=== PATIENT | female | born 1985 ===

== ENCOUNTER 2017-11-22 18:14 | Emergency (ER) | payer BC ==
[2017-11-22] MEDS ORDERED: diPHENhydraMINE PO* 50 MG PO ONE (18:40)
[2017-11-22] MEDS ORDERED: predniSONE TAB* 20 MG PO ONE (18:40)
--- NOTE | 2017-11-22 18:57 | UC ---
Myles Conde Natalie, scribed for Dayo Shaw MD on 11/22/17 at 1846 . Allergic Reaction HPI - HPI Summary HPI Summary: The pt is a 32 y/o F presenting to UC c/o an allergic reaction starting an hour ago. She was driving home from work when her lips, eyelids, and hands started swelling, and her skin became erythematous. She ate almonds before leaving work , but hasnt had allergies to them in the past. She is unsure if she touched anything. Pt additionally c/o scratchy throat, tight voice, body itching, and hives. Pt denies changes to breathing. She is allergic to Amoxicillin. She has PMHx of eczema. - History of Current Complaint Chief Complaint: UCAllergicReaction Stated Complaint: ALLERGIC REACTION Time Seen by Provider: 11/22/17 18:33 Hx Last Menstrual Period: iud Onset/Duration: Sudden Onset, Lasting Minutes - started about an hour ago, Still Present Character: Swelling, Hives Aggravating Factor(s): Nothing Alleviating Factor(s): Nothing Associated Signs And Symptoms: Positive: Other: - scratchy throat, tight voice, body itches. 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 - Family History Known Family History: Negative: Cardiac Disease, Hypertension - Social History Alcohol Use: Occasionally Substance Use Type: Marijuana Smoking Status (MU): Never Smoked Tobacco Review of Systems Skin: Other - hives, erythema, itching ENT: Other - scratchy throat, tight voice Respiratory: Other - NEGATIVE: changes to breathing All Other Systems Reviewed And Are Negative: Yes Physical Exam Triage Information Reviewed: Yes Appearance: Well-Appearing Vital Signs: Initial Vital Signs Temp 98.6 F 11/22/17 18:22 Pulse 105 11/22/17 18:22 Resp 21 11/22/17 18:22 BP 162/99 11/22/17 18:22 Pulse Ox 100 11/22/17 18:22 Eyes: Positive: Other: - eyelids with edema ENT: Positive: Other - lips upper and lower mild edema, face flushed. Voice is clear without stridor. Negative: Trismus, Muffled voice, Hoarse voice Neck: Positive: Supple Respiratory: Positive: Lungs clear, Normal breath sounds, No respiratory distress, No accessory muscle use Cardiovascular: Positive: RRR, No Murmur Abdomen Description: Positive: Nontender Musculoskeletal: Positive: Strength Intact, ROM Intact Neurological: Positive: Muscle Tone Normal Psychological Exam: Normal Skin: Positive: Other - skin flushed appearance with some hives on lower abdomen and hand areas. Allergic Reaction Course/Dx - Course Course Of Treatment: 32 yr old with allergic reaction. I recommend she go to the ER by ambulance but she signed out AMA with risks of , disability, airway closing off. She refused ambulance transport. - Differential Dx/Diagnosis Provider Diagnoses: allergic reaction Discharge - Discharge Plan Condition: Good Disposition: AGAINST MEDICAL ADVICE Referrals: Stephanie Scales MD [Primary Care Provider] - The documentation as recorded by the Myles rosen Natalie accurately reflects the service I personally performed and the decisions made by me, Dayo Shaw MD.
== END 2017-11-22 18:53 | disposition left against medical advice (07) ==
LOC: UCEAST 18:14
DX: T78.40XA Allergy, unspecified, initial encounter (principal); Z88.1 Allergy status to other antibiotic agents
CPT/HCPCS: 99202; A9270-GY; G0463; J7512